=== PATIENT | female | born 2000 | race Caucasian/White ===

== ENCOUNTER 2018-12-12 15:19 | Inpatient (IN) ==
[2018-12-12 17:56] LABS: Basophils # (auto) 0.02 K/uL (0-0.2); Basophils % (auto) 0.3 %; Eosinophils # (auto) 0.05 K/uL (0-0.5); Eosinophils % (auto) 0.8 %; Hematocrit (blood only) 40.4 % (37-47); Hemoglobin 14.2 g/dL (12.0-16.0); Immature Granulocytes # (auto) 0.01 K/uL (0.00-0.02); Immature Granulocytes % (auto) 0.2 %; Lymphocytes # (auto) 1.81 K/uL (1.2-3.4); Lymphocytes % (auto) 27.6 %; Mean Corpuscular Hemoglobin 31.2 pg (25-34); Mean Corpuscular Hgb Conc 35.1 g/dL (32-36); Mean Corpuscular Volume 88.8 fL (80-100); Mean Platelet Volume 9.5 fL (7.4-10.4); Monocytes # (auto) 0.34 K/uL (0.11-0.59); Monocytes % (auto) 5.2 %; Neutrophils # (auto) 4.33 K/uL (1.4-6.5); Neutrophils % (auto) 65.9 %; Platelet Count 213 K/uL (130-400); RDW Coefficient of Variation 12.6 % (11.5-14.5); RDW Standard Deviation 40.6 fL (36.4-46.3); Red Blood Count 4.55 M/uL (4.2-5.4); White Blood Count 6.56 K/uL (4.8-10.8)
[2018-12-12 18:09] LABS: Prothrombin Time 10.5 Seconds (9.0-12.0)
[2018-12-12 18:14] LABS: Alanine Aminotransferase 21 U/L (12-78); Albumin Level 4.2 gm/dl (3.4-5.0); Aspartate Aminotransferase 16 U/L (15-37); Blood Urea Nitrogen 9 mg/dl (7-18); Calcium 9.8 mg/dl (8.5-10.1); Carbon Dioxide 23 mmol/L (21-32); Chloride 103 mmol/L (98-107); Creatinine Clr Calc Pharmacy 110.6 ml/min; Est GFR (African American) 137.4; Est GFR (Non-African American) 118.6; Glucose 79 mg/dl (70-99); Potassium 3.4 mmol/L (3.5-5.1); Sodium 136 mmol/L (136-145)
[2018-12-12 18:24] LABS: Alkaline Phosphatase 59 U/L (45-117); Bilirubin,Total 0.4 mg/dl (0.2-1); Globulin 4.2 gm/dl (2.5-4.0); Total Protein 8.4 gm/dl (6.4-8.2); Troponin I < 0.015 ng/ml (0-0.045)
--- NOTE | 2018-12-12 18:47 | CT Scan Report ---
CT SCAN OF THE BRAIN WITHOUT IV CONTRAST CLINICAL HISTORY: Slurred speech. COMPARISON STUDY: No priors. TECHNIQUE: Unenhanced axial CT scan of the brain is performed from the vertex to the skull base. A d ose lowering technique was utilized adhering to the principles of ALARA. CT DOSE: 537.48 mGy.cm FINDINGS: Brain parenchyma: The brain parenchyma is normal in appearance. There is no hemorrhage, mass effect, or evidence of acute territorial ischemia by CT criteria. Wilkins-white matter differentiation is preser chicho. No extra-axial fluid collection is seen. Ventricles, sulci, cisterns: Normal in configuration. Intracranial vasculature: The visualized intracranial vasculature at the skull base is normal in appe arance. Calvarium: Unremarkable. Sinuses and mastoids: The visualized paranasal sinuses are clear. The mastoid air cells are well pneu matized. Orbits: The bony orbits are grossly intact. IMPRESSION: No acute intracranial abnormality. Electronically signed by: Rajesh Diamond M.D. 12/12/2018 6:46 PM
[2018-12-12 18:50] LABS: Appearance Urine Clear (Clear); Bilirubin Urine Negative (Negative); Blood Urine Negative (Negative); Color Urine Yellow; Glucose Urine UA Negative (Negative); Ketones Urine Negative (Negative); Leukocyte Esterase Urine Negative (Negative); Nitrite Urine Negative (Negative); Protein Urine Negative (Negative); Specific Gravity Urine 1.009 (1.000-1.030); Urobilinogen Urine Negative (Negative); pH Urine 6.5 (4.5-7.5)
--- NOTE | 2018-12-12 18:59 | XRay Report ---
SINGLE VIEW CHEST CLINICAL HISTORY: Generalized weakness. FINDINGS: An AP, portable, upright chest radiograph is obtained. No prior studies are available for c omparison at the time of dictation. The examination is degraded by portable technique and patient ro tation. The cardiomediastinal silhouette is unremarkable. The lungs and pleural spaces are clear. No pneumothorax is seen. The bony thorax is grossly intact. IMPRESSION: No active disease in the chest. Electronically signed by: Rajesh Diamond M.D. 12/12/2018 6:57 PM
[2018-12-12 19:31] LABS: Amphetamines+Metham, Urine Neg (Neg); Barbiturates, Urine Neg (Neg); Benzodiazepine, Urine Neg (Neg); Cocaine, Urine Neg (Neg); MDMA (Ecstacy), Urine Neg (Neg); Methadone, Urine Neg (Neg); Opiate, Urine Neg (Neg); Phencyclidine, Urine Neg (Neg)
--- NOTE | 2018-12-12 20:48 | Magnetic Resonance Report ---
MRI OF THE BRAIN WITHOUT IV CONTRAST CLINICAL HISTORY: Slurred speech. COMPARISON STUDY: CT of the brain dated 12/12/2018. TECHNIQUE: MRI of the brain was performed utilizing various T1 and T2-weighted sequences in the axial , sagittal, and coronal planes. IV contrast was not administered for this examination. FINDINGS: Brain parenchyma: There is a 2 cm focus of geographic signal abnormality within the right superior ce rebellar peduncle, best seen on coronal FLAIR image #18. There is no restricted diffusion within this lesion, which causes minimal mass effect. There is no hemorrhage. There is no restricted diffusion t ypical for acute ischemia. No extra-axial fluid collection is seen. The cerebellar tonsils are desiree l in configuration. Ventricles, sulci, and cisterns: Normal in configuration. Pituitary and sella: Unremarkable. Intracranial vasculature: Normal flow voids are maintained at the skull base. Orbits: The bony orbits are grossly intact. Orbital contents are normal in appearance. Sinuses and mastoids: Trace mucosal thickening is noted in the right maxillary antrum. The remaining paranasal sinuses are clear. The mastoid air cells are well pneumatized. Calvarium: Unremarkable. Cervical cord: Partially visualized cervical spinal cord is normal in morphology and signal intensity . IMPRESSION: 1. There is a 2 cm region of signal abnormality identified within the right superior cerebellar pedun rosa which causes mild mass effect. The imaging findings are nonspecific, and this could represent dem yelination/multiple sclerosis, glioma, a nonspecific encephalitis, or less likely a subacute infarct. Follow-up with neurology is recommended, as is a repeat contrast-enhanced MRI in several weeks' time . 2. The brain parenchyma is otherwise normal in appearance. There is no hemorrhage or restricted diffu thalia identified typical for acute ischemia. Findings were discussed with Dr. Cook in the emergency department at the time of interpretation. Electronically signed by: Rajesh Diamond M.D. 12/12/2018 8:47 PM
[2018-12-12] MEDS ORDERED: ASPIRIN CHEW 324 MG PO STA (20:55)
--- NOTE | 2018-12-12 21:13 | Emergency Department Note ---
Entered by Michelle Awad acting as a scribe for History of Present Illness General Chief complaint: Neuro Symptoms/Deficit Stated complaint: R HAND WEAKNESS, SLURRED SPEACH Time Seen by Provider: 12/12/18 16:41 Source: patient History of Present Illness Onset (ago): week(s) 1 Location: head Pain Consistency: + other (persistent ) Quality: + other (neurological symptoms) Associated symptoms: + other (positive slurring speech; positive mumbling; positive difficulty writing; positive slow and deliberate with her right hand; negative abdominal pain); no chest pain, no fever/chills and no headaches The patient is a 18 year old white female w/ no significant PMHx who presents to the ED w/ CC of persistent neurological symptoms beginning about one week prior to arrival. The patient states that she has been slurring her speech and mumbling during this time. She reports that she has been having difficulty writing, stating that she knows what she wants to say but is having difficulty holding her pencil and "physically doing it". The patient states that her writing has been slow and deliberate when using her right hand, but states that it is not normally like this. She denies headache, chest pain, fever, chills, and abdominal pain. The patient denies any recent falls or head trauma. She states that she is on Sprintec control. The patient denies any history of seizures or migraines. She reports that two whitley ago it was thought that she had Lyme disease and she was treated with Doxycycline, but she states that she was diagnosed with a virus. Home Medications Home Medications Medication Instructions Recorded Confirmed Type norgestimate-ethinyl estradiol 1 tab PO DAILY 12/12/18 12/12/18 History [Sprintec (28)] Allergies Allergy/AdvReac Type Severity Reaction Status Date / Time Penicillins Allergy Unknown Verified 12/12/18 17:47 Past Med/Surg History Medical History No significant past medical history Surgical History S/P wisdom tooth extraction Family History Mother Melanoma Father Dyslipidemia Nephrolithiasis Social History Preferred Language: Tunisian Communication Ability: Effective [employer]ancer Required: No Beliefs That Will Affect Care: None Current Living Situation: Other Current Living Situation Comment: roommates current occupational status: student Feels Safe at Home: Yes Safety Concerns: Feels Safe At This Time Smoking Status: Never smoker Hx Alcohol Use: Yes Alcohol type: beer, wine and hard liquor Alcohol Intake Frequency Comment: About 10 drinks per week Hx Substance Use: No Review of Systems See HPI for pertinent positives & negatives. and A total of 10 systems reviewed and were otherwise negative Physical Exam Vital Signs Vital Signs - 24 hr 12/12/18 15:32 12/12/18 17:06 12/12/18 18:25 Temperature 37.5 C Temperature Source Oral Sepsis Recent Fever Within 48 Hours No Sepsis New/Unexplained Change in Mental Status No Sepsis Action Taken by Nursing No Action Required Pulse Rate 101 H Pulse Rate [Left] 87 Pulse Rate from SpO2 Sensor Pulse Rhythm [Left] Pulse Strength [Left] Respiratory Rate 20 20 Respiratory Effort / Characteristics Respiratory Depth Respiratory Pattern Blood Pressure 150/94 H Blood Pressure [Right Arm] 131/82 Blood Pressure Mean 112 Blood Pressure Mean [Right Arm] 98 Blood Pressure Position [Right Arm] Pulse Oximetry 100 98 Oxygen Delivery Method Room Air Room Air Room Air 12/12/18 18:38 12/12/18 19:00 12/12/18 19:27 Temperature Temperature Source Sepsis Recent Fever Within 48 Hours Sepsis New/Unexplained Change in Mental Status Sepsis Action Taken by Nursing Pulse Rate 108 H 87 88 Pulse Rate [Left] Pulse Rate from SpO2 Sensor Pulse Rhythm [Left] Pulse Strength [Left] Respiratory Rate 20 21 20 Respiratory Effort / Characteristics Respiratory Depth Respiratory Pattern Blood Pressure 127/74 Blood Pressure [Right Arm] Blood Pressure Mean 91 Blood Pressure Mean [Right Arm] Blood Pressure Position [Right Arm] Pulse Oximetry 100 96 100 Oxygen Delivery Method Room Air Room Air Room Air 12/12/18 19:30 12/12/18 20:12 12/12/18 20:30 Temperature Temperature Source Sepsis Recent Fever Within 48 Hours Sepsis New/Unexplained Change in Mental Status Sepsis Action Taken by Nursing Pulse Rate 106 H 83 94 H Pulse Rate [Left] Pulse Rate from SpO2 Sensor Pulse Rhythm [Left] Pulse Strength [Left] Respiratory Rate 24 24 16 Respiratory Effort / Characteristics Respiratory Depth Respiratory Pattern Blood Pressure 131/82 129/79 125/79 Blood Pressure [Right Arm] Blood Pressure Mean 98 95 94 Blood Pressure Mean [Right Arm] Blood Pressure Position [Right Arm] Pulse Oximetry 100 99 99 Oxygen Delivery Method Room Air Room Air Room Air 12/12/18 21:00 12/12/18 21:30 12/12/18 21:31 Temperature Temperature Source Sepsis Recent Fever Within 48 Hours Sepsis New/Unexplained Change in Mental Status Sepsis Action Taken by Nursing Pulse Rate 90 107 H 109 H Pulse Rate [Left] Pulse Rate from SpO2 Sensor 111 H Pulse Rhythm [Left] Pulse Strength [Left] Respiratory Rate 22 21 20 Respiratory Effort / Characteristics Respiratory Depth Respiratory Pattern Blood Pressure 116/73 138/95 Blood Pressure [Right Arm] Blood Pressure Mean 87 109 Blood Pressure Mean [Right Arm] Blood Pressure Position [Right Arm] Pulse Oximetry 98 99 99 Oxygen Delivery Method Room Air Room Air 12/12/18 22:00 12/12/18 22:01 12/12/18 22:30 Temperature Temperature Source Sepsis Recent Fever Within 48 Hours Sepsis New/Unexplained Change in Mental Status Sepsis Action Taken by Nursing Pulse Rate 101 H 101 H 93 H Pulse Rate [Left] Pulse Rate from SpO2 Sensor 102 H 102 H Pulse Rhythm [Left] Pulse Strength [Left] Respiratory Rate 16 20 21 Respiratory Effort / Characteristics Respiratory Depth Respiratory Pattern Blood Pressure 112/80 126/83 Blood Pressure [Right Arm] Blood Pressure Mean 90 97 Blood Pressure Mean [Right Arm] Blood Pressure Position [Right Arm] Pulse Oximetry 98 98 97 Oxygen Delivery Method Room Air 12/12/18 23:23 12/12/18 23:36 12/13/18 04:00 Temperature 36.8 C 36.8 C Temperature Source Oral Oral Sepsis Recent Fever Within 48 Hours Sepsis New/Unexplained Change in Mental Status Sepsis Action Taken by Nursing Pulse Rate 95 H Pulse Rate [Left] 85 84 Pulse Rate from SpO2 Sensor Pulse Rhythm [Left] Regular Pulse Strength [Left] Normal Respiratory Rate 16 20 Respiratory Effort / Characteristics Non-Labored Spontaneous Respiratory Depth Normal Normal Respiratory Pattern Regular Blood Pressure Blood Pressure [Right Arm] 122/88 106/66 Blood Pressure Mean Blood Pressure Mean [Right Arm] 99 79 Blood Pressure Position [Right Arm] Lying Lying Pulse Oximetry 98 99 Oxygen Delivery Method Room Air Room Air 12/13/18 08:05 12/13/18 10:45 12/13/18 11:10 Temperature 36.9 C 37.2 C Temperature Source Oral Oral Sepsis Recent Fever Within 48 Hours Sepsis New/Unexplained Change in Mental Status Sepsis Action Taken by Nursing Pulse Rate 65 Pulse Rate [Left] 85 76 Pulse Rate from SpO2 Sensor Pulse Rhythm [Left] Pulse Strength [Left] Respiratory Rate 16 18 Respiratory Effort / Characteristics Respiratory Depth Respiratory Pattern Blood Pressure Blood Pressure [Right Arm] 118/80 115/76 Blood Pressure Mean Blood Pressure Mean [Right Arm] 92 89 Blood Pressure Position [Right Arm] Lying Lying Pulse Oximetry 99 98 Oxygen Delivery Method Room Air Room Air GENERAL: Well appearing, well nourished, NAD, non-toxic. EYE EXAM: Leftward horizontal nystagmus. Non-bidirectional, gyrational, or vertical. Normal conjunctiva. PERRL, no anisocoria and EOM's grossly intact w/o pain. OROPHARYNX: Moist mucus membranes. Grossly normal dentition. NECK: Supple, no nuchal rigidity, no adenopathy, non-tender. no signs of meningismus. LUNGS: Clear to auscultation. Normal chest wall mechanics. HEART: NSR, no MRG. ABDOMEN: Abdomen soft, non-tender, normo-active bowel sounds, no masses, no rebound or guarding. BACK: No CVA TTP. SKIN: No rashes and no bruising. UPPER EXTREMITIES: Upper extremities are grossly normal. LOWER EXTREMITIES: No pitting edema. No calf pain. NEURO EXAM: A&O x3, cranial nerves II-XII grossly intact with the exception of slurred speech. 5/5 strength throughout, no sensory deficits, good finger to nose, no pronator drift, moves all 4 extremities on command w/o issue. Course 1657: Past medical records reviewed. The patient was evaluated in room C4. A complete history and physical exam was performed. 1920: [facility] recommends [facility]. 1934: I checked on and updated the patient on the treatment plan. Consultations Consultation #1: I discussed the [facility] who recommends MRI. [facility] who agreed to further evaluate treat the patient. Time: 19:21 Administered Medications Miscellaneous (Patient's Own Oral Contraceptive) 1 ea PO DAILY URSZULA Stop: 01/12/19 08:59 Last Admin: 12/13/18 09:55 Dose: 1 ea Documented by: [id number] Discontinued Medications Aspirin (Aspirin) 324 mg PO NOW STA Stop: 12/12/18 20:56 Last Admin: 12/12/18 21:19 Dose: 324 mg Documented by: [id number] Potassium Chloride (Klor-Con M20) 20 meq PO Q2H URSZULA Stop: 12/13/18 10:31 Last Admin: 12/13/18 11:51 Dose: 20 meq Documented by: [id number] Admin: 12/13/18 09:55 Dose: 20 meq Documented by: [id number] Medical Decision Making Medical Records Attestation: I reviewed the patient's medical records. Home Medications Current Medication List: was personally reviewed by me Laboratory Data Attestation: I reviewed the patient's lab results. Result diagrams: 12/12/18 17:37 12/12/18 17:37 Lab Results 12/12/18 12/12/18 12/12/18 Range/Units 16:45 16:45 17:37 WBC (4.8-10.8) K/uL RBC (4.2-5.4) M/uL Hgb (12.0-16.0) g/dL Hct (37-47) % MCV (80-100) fL MCH (25-34) pg MCHC (32-36) g/dL RDW Std Deviation (36.4-46.3) fL RDW Coeff of Johny (11.5-14.5) % Plt Count (130-400) K/uL MPV (7.4-10.4) fL Immature Gran % (Auto) % Neut % (Auto) % Lymph % (Auto) % [place] % (Auto) % Eos % (Auto) % Baso % (Auto) % Immature Gran # (Auto) (0.00-0.02) K/uL Neut # (Auto) (1.4-6.5) K/uL Lymph # (Auto) (1.2-3.4) K/uL [place] # (Auto) (0.11-0.59) K/uL Eos # (Auto) (0-0.5) K/uL Baso # (Auto) (0-0.2) K/uL PT 10.5 (9.0-12.0) Seconds INR 1.0 (0.9-1.1) Sodium (136-145) mmol/L Potassium (3.5-5.1) mmol/L Chloride (98-107) mmol/L Carbon Dioxide (21-32) mmol/L Anion Gap (3-11) BUN (7-18) mg/dl Creatinine (0.6-1.2) mg/dl Est Cr Clr Drug Dosing ml/min Est GFR ( Amer) Est GFR (Non-Af Amer) BUN/Creatinine Ratio (10-20) Glucose (70-99) mg/dl Calcium (8.5-10.1) mg/dl Magnesium (1.8-2.4) mg/dl Total Bilirubin (0.2-1) mg/dl AST (15-37) U/L ALT (12-78) U/L Alkaline Phosphatase (45-117) U/L Troponin I (0-0.045) ng/ml Total Protein (6.4-8.2) gm/dl Albumin (3.4-5.0) gm/dl Globulin (2.5-4.0) gm/dl Albumin/Globulin Ratio (0.9-2) TSH (0.300-4.500) uIu/ml Urine Color Yellow Urine Appearance Clear (Clear) Urine pH 6.5 (4.5-7.5) Ur Specific [place] 1.009 (1.000-1.030) Urine Protein Negative (Negative) Urine Glucose (UA) Negative (Negative) Urine Ketones Negative (Negative) Urine Blood Negative (Negative) Urine Nitrite Negative (Negative) Urine Bilirubin Negative (Negative) Urine Urobilinogen Negative (Negative) Ur Leukocyte Esterase Negative (Negative) Urine Opiates Screen Neg (Neg) Ur Methadone, Qual Neg (Neg) Urine Barbiturates Neg (Neg) Ur Phencyclidine (PCP) Neg (Neg) U Amphetamin/Meth Scrn Neg (Neg) MDMA (Ecstasy) Screen Neg (Neg) U Benzodiazepines Scrn Neg (Neg) Ur Cocaine Metabolite Neg (Neg) U Marijuana (THC) Screen Neg (Neg) Ethyl Alcohol mg/dL (0-3) mg/dl 12/12/18 12/12/18 12/12/18 Range/Units 17:37 17:37 17:37 WBC 6.56 (4.8-10.8) K/uL RBC 4.55 (4.2-5.4) M/uL Hgb 14.2 (12.0-16.0) g/dL Hct 40.4 (37-47) % MCV 88.8 (80-100) fL MCH 31.2 (25-34) pg MCHC 35.1 (32-36) g/dL RDW Std Deviation 40.6 (36.4-46.3) fL RDW Coeff of Johny 12.6 (11.5-14.5) % Plt Count 213 (130-400) K/uL MPV 9.5 (7.4-10.4) fL Immature Gran % (Auto) 0.2 % Neut % (Auto) 65.9 % Lymph % (Auto) 27.6 % [place] % (Auto) 5.2 % Eos % (Auto) 0.8 % Baso % (Auto) 0.3 % Immature Gran # (Auto) 0.01 (0.00-0.02) K/uL Neut # (Auto) 4.33 (1.4-6.5) K/uL Lymph # (Auto) 1.81 (1.2-3.4) K/uL [place] # (Auto) 0.34 (0.11-0.59) K/uL Eos # (Auto) 0.05 (0-0.5) K/uL Baso # (Auto) 0.02 (0-0.2) K/uL PT (9.0-12.0) Seconds INR (0.9-1.1) Sodium 136 (136-145) mmol/L Potassium 3.4 L (3.5-5.1) mmol/L Chloride 103 (98-107) mmol/L Carbon Dioxide 23 (21-32) mmol/L Anion Gap 9.0 (3-11) BUN 9 (7-18) mg/dl Creatinine 0.73 (0.6-1.2) mg/dl Est Cr Clr Drug Dosing 110.6 ml/min Est GFR ( Amer) 137.4 Est GFR (Non-Af Amer) 118.6 BUN/Creatinine Ratio 12.0 (10-20) Glucose 79 (70-99) mg/dl Calcium 9.8 (8.5-10.1) mg/dl Magnesium 2.0 (1.8-2.4) mg/dl Total Bilirubin 0.4 (0.2-1) mg/dl AST 16 (15-37) U/L ALT 21 (12-78) U/L Alkaline Phosphatase 59 (45-117) U/L Troponin I < 0.015 (0-0.045) ng/ml Total Protein 8.4 H (6.4-8.2) gm/dl Albumin 4.2 (3.4-5.0) gm/dl Globulin 4.2 H (2.5-4.0) gm/dl Albumin/Globulin Ratio 1.0 (0.9-2) TSH 1.210 (0.300-4.500) uIu/ml Urine Color Urine Appearance (Clear) Urine pH (4.5-7.5) Ur Specific [place] (1.000-1.030) Urine Protein (Negative) Urine Glucose (UA) (Negative) Urine Ketones (Negative) Urine Blood (Negative) Urine Nitrite (Negative) Urine Bilirubin (Negative) Urine Urobilinogen (Negative) Ur Leukocyte Esterase (Negative) Urine Opiates Screen (Neg) Ur Methadone, Qual (Neg) Urine Barbiturates (Neg) Ur Phencyclidine (PCP) (Neg) U Amphetamin/Meth Scrn (Neg) MDMA (Ecstasy) Screen (Neg) U Benzodiazepines Scrn (Neg) Ur Cocaine Metabolite (Neg) U Marijuana (THC) Screen (Neg) Ethyl Alcohol mg/dL < 3.0 (0-3) mg/dl Imaging Data Radiologist's Impression: Radiology results as stated below per my review and the radiologist's interpretation: SINGLE VIEW CHEST CLINICAL HISTORY: Generalized weakness. FINDINGS: An AP, portable, upright chest radiograph is obtained. No prior studies are available for comparison at the time of dictation. The examination is degraded by portable technique and patient rotation. The cardiomediastinal silhouette is unremarkable. The lungs and pleural spaces are clear. No pneumothorax is seen. The bony thorax is grossly intact. IMPRESSION: No active disease in the chest. Electronically signed by: Rajesh Diamond M.D. 12/12/2018 6:[address] SCAN OF THE BRAIN WITHOUT IV CONTRAST CLINICAL HISTORY: Slurred speech. COMPARISON STUDY: No priors. TECHNIQUE: Unenhanced axial CT scan of the brain is performed from the vertex to the skull base. A dose lowering technique was utilized adhering to the principles of ALARA. CT DOSE: 537.48 mGy.cm FINDINGS: Brain parenchyma: The brain parenchyma is normal in appearance. There is no hemorrhage, mass effect, or evidence of acute territorial ischemia by CT criteria. Wilkins-white matter differentiation is preserved. No extra-axial fluid collection is seen. Ventricles, sulci, cisterns: Normal in configuration. Intracranial vasculature: The visualized intracranial vasculature at the skull base is normal in appearance. Calvarium: Unremarkable. Sinuses and mastoids: The visualized paranasal sinuses are clear. The mastoid air cells are well pneumatized. Orbits: The bony orbits are grossly intact. IMPRESSION: No acute intracranial abnormality. Electronically signed by: Rajesh Diamond M.D. 12/12/2018 6:46 PM MRI OF THE BRAIN WITHOUT IV CONTRAST CLINICAL HISTORY: Slurred speech. COMPARISON STUDY: CT of the brain dated 12/12/2018. TECHNIQUE: MRI of the brain was performed utilizing various T1 and T2-weighted sequences in the axial, sagittal, and coronal planes. IV contrast was not administered for this examination. FINDINGS: Brain parenchyma: There is a 2 cm focus of geographic signal abnormality within the right superior cerebellar peduncle, best seen on coronal FLAIR image #18. There is no restricted diffusion within this lesion, which causes minimal mass effect. There is no hemorrhage. There is no restricted diffusion typical for acute ischemia. No extra-axial fluid collection is seen. The cerebellar tonsils are normal in configuration. Ventricles, sulci, and cisterns: Normal in configuration. Pituitary and sella: Unremarkable. Intracranial vasculature: Normal flow voids are maintained at the skull base. Orbits: The bony orbits are grossly intact. Orbital contents are normal in appea nina. Sinuses and mastoids: Trace mucosal thickening is noted in the right maxillary antrum. The remaining paranasal sinuses are clear. The mastoid air cells are well pneumatized. Calvarium: Unremarkable. Cervical cord: Partially visualized cervical spinal cord is normal in morphology and signal intensity. IMPRESSION: 1. There is a 2 cm region of signal abnormality identified within the right superior cerebellar peduncle which causes mild mass effect. The imaging findings are nonspecific, and this could represent demyelination/multiple sclerosis, glioma, a nonspecific encephalitis, or less likely a subacute infarct. Follow-up with neurology is recommended, as is a repeat contrast-enhanced MRI in several weeks' time. 2. The brain parenchyma is otherwise normal in appearance. There is no hemorrhage or restricted diffusion identified typical for acute ischemia. Findings were discussed with Dr. Cook in the emergency department at the time of interpretation. Electronically signed by: Rajesh Diamond M.D. 12/12/2018 8:47 PM Dictated: 12/12/182022 ECG Data Attestation: I personally reviewed and interpreted this ECG as follows: Indication: weakness Rate (beats per minute): 89 Rhythm: normal sinus Findings: + other (normal intervals; normal axis); no ST depression, no ST elevation and no acute ischemic change MDM Narrative The patient is a 18 year old white female w/ no significant PMHx who presents to the ED w/ CC of persistent neurological symptoms beginning about one week prior to arrival. Differential diagnoses includes but is not limited to toxic, metabolic, infectious, traumatic, cardiac, neurologic, hematologic, psychiatric and inflammatory etiologies. Patient was seen and evaluated the bedside. The patient has been complaining some neurologic symptoms beginning approximately a week prior. The patient states she has had some increasing stress and did note one fall approximately 9 to 10 days ago. The patient did not have any LOC at that time. Patient does not take blood thinning medications. The patient does take control. The patient does have some slurred speech and some difficulty with writing where she is very deliberate and slow but can write. The patient does answer basic arithmetic and otherwise has no focal findings on exam. The patient did a blood work completed along with a CT of the head. These were all negative. The patient given her persistent findings and symptoms I did speak the on-call neurologist who recommended MRI brain. There was concern on T2 flair imaging of the cerebellum. I did order the patient's a full dose aspirin as a precaution even though stroke was less likely based on the imaging per radiology. I did speak the on-call hospitalist agreed to further evaluate treat the patient. Patient was admitted to the medicine service. Impression & Plan Abnormal brain MRI, Dysarthria, Difficulty writing Discharge Plan Visit Data *Final* Discharge Date/Time: 12/12/18 22:59 Chief Complaint: Neuro Symptoms/Deficit Stated Complaint: R HAND WEAKNESS, SLURRED SPEACH ED Provider: Chalino Cook Discharge Problem: Abnormal brain MRI, Dysarthria, Difficulty writing Patient Disposition: Admitted As Inpatient Discharge Instructions Interventions: ED Discharge Assessment Last Done: 12/12/18 22:59 The scribe's documentation has been prepared under my direction and personally reviewed by me in its entirety. I confirm that the note above accurately reflects all work, treatment, procedures, and medical decision making performed by me.
--- NOTE | 2018-12-12 22:41 | History & Physical Report ---
Date of Service December 12, 2018 Assessment & Plan (1) Neurological symptoms: This is a 18-year-old female with no PMH who presents with her mother and boyfriend after 1 week of difficulty finding words, and also difficulty with handwriting. She states she first noticed symptoms with her handwriting, notes she had to "think very hard about what to write". She is a jef in nursing school. Of note she denies any recent head trauma, although has history of 2 concussions during high school lacrosse. She states she bumped her head on a [employer] countertop last Wednesday. Her symptoms began Wednesday. Denies accompanying headache or h/o migraines, no increased stress/life events. Denies seizure like activity. Mother states maternal grandfather had a CVA in his 60s, patient's cousin has epilepsy. Family is otherwise healthy and patient is healthy herself. Denies any medical complications during or childhood. Patient only takes oral contraceptive medication and no other medicines. No recent hospitalizations. In the ED, labs were relatively unremarkable. Head CT was negative for any acute abnormalities. Brain MRI without contrast showed a 2 cm focus of signal abnormality within the right superior cerebellar peduncle. Negative for hemorrhage or ischemia. Anatomy is otherwise unremarkable. Patient is afebrile, mildly tachycardic. TSH is normal. Urinalysis unremarkable. Urine tox negative, no alcohol. Chest x-ray unremarkable. Neurology was consulted, patient was administered 324 mg p.o. aspirin. Neurological symptoms -4 days, ongoing, persistent -- Aphasia versus dysarthria, dysgraphia? -Brain MRI without contrast with 2 cm focus of signal abnormality in the right superior cerebellar peduncle -differential inc TIA/ demyelination /inflammatory. Infarction/encephalitis seem unlikely given clinical picture. Toxic causes unlikely. -pt is hemodynamically stable, and neuro exam is relatively benign, speaking in full sentences. Plan: -admit med/tele -Consult neurology, defer further imaging to their management. FEN/GI: regular diet DVT ppx: low risk, SCDs CODE STATUS: FULL DISPO: med/tele other ongoing medical problems: -on OCP - continued. History of Present Illness Chief Complaint: Neurological complaints, abnormal brain MRI Primary Care Provider: [facility] This is a 18-year-old female who presents with her mother and boyfriend after 1 week of difficulty finding words, and also difficulty with handwriting. She states she first noticed symptoms with her handwriting, notes she had tooth "think very hard about what to write". She is a jef in nursing school. Of note she denies any recent head trauma, although has had 2 concussions during high school lacrosse. She states she bumped her head on a [employer] countertop last Wednesday. Her symptoms began Wednesday. Mother states maternal grandfather had a CVA in his 60s, patient's cousin has epilepsy. Family is otherwise healthy and patient is healthy herself. Denies any medical complications during or childhood. Patient only takes oral contraceptive medication and no other medicines. No recent hospitalizations. In the ED, labs were relatively unremarkable. Head CT was negative for any acute abnormalities. Brain MRI without contrast showed a 2 cm focus of signal abnormality within the right superior cerebellar peduncle. Negative for hemorrhage or ischemia. Anatomy is otherwise unremarkable. Patient is afebrile, mildly tachycardic. TSH is normal. Urinalysis unremarkable. Urine tox negative, no alcohol. Chest x-ray unremarkable. Neurology was consulted, patient was administered 324 mg p.o. aspirin. Allergies Allergy/AdvReac Type Severity Reaction Status Date / Time Penicillins Allergy Unknown Verified 12/12/18 17:47 Home Medications Home Medications Medication Instructions Recorded Confirmed Type norgestimate-ethinyl estradiol 1 tab PO DAILY 12/12/18 12/12/18 History [Sprcyndiec (28)] Past Med/Surg History Medical History No significant past medical history Social History Preferred Language: Barbadian Communication Ability: Effective Tester [employer] Required: No Beliefs That Will Affect Care: None Current Living Situation: Other Current Living Situation Comment: roommates Feels Safe at Home: Yes Safety Concerns: Feels Safe At This Time Smoking Status: Never smoker Hx Alcohol Use: Yes Alcohol type: beer, wine and hard liquor Hx Substance Use: No Review of Systems Review of Systems: All systems reviewed & are unremarkable except as noted in HPI & below Physical Exam Physical Exam: Vitals noted and within normal limits with the exception of mi ld tachycardia. GENERAL: Awake, alert to person, place, and time, nontoxic-appearing, in no distress. HENT: Normocephalic, atraumatic. Mucus membranes appear moist. EYES: Normal conjunctiva. Sclera non-icteric. EOMI. NECK: Supple. Full range of motion. No JVD. RESPIRATORY: Clear to auscultation. Normal work of breathing. CARDIAC: Regular rate, normal rhythm. Extremities warm and well perfused, 2+ radial pulses bilaterally; 2+ posterior tibialis pulses bilaterally. ABDOMEN: Soft, non-distended. No tenderness to palpation in all four quadrants. No rebound or guarding. No masses. Bowel sounds are normal. LOWER EXTREMITIES: Inspection of calves reveal equal size bilaterally. They are non-tender. No edema. No discoloration. NEURO: No focal motor deficits noted. Sensation in tact. CN II-XII in tact. Normal cerebellar testing. Normal gait, no facial droop. SKIN: Rash not present. No jaundice noted. Significant lesions not present. PSYCH: Appropriate mood and affect. Cooperative. Mother and patient's boyfriend are at bedside. Exam as done by Tracey Brewer MD, Assembly Technician. Results & Data Vital Signs (Past 12 Hours) Vital Signs Temp Pulse Pulse Resp BP BP Pulse Ox 12/12/18 20:12 83 24 129/79 99 12/12/18 19:30 106 H 24 131/82 100 12/12/18 19:27 88 20 127/74 100 12/12/18 19:00 87 21 96 12/12/18 18:38 108 H 20 100 12/12/18 18:25 87 20 131/82 98 12/12/18 15:32 37.5 C 101 H 20 150/94 H 100 Laboratory Results 12/12/18 12/12/18 12/12/18 Range/Units 17:37 17:37 17:37 WBC 6.56 (4.8-10.8) K/uL RBC 4.55 (4.2-5.4) M/uL Hgb 14.2 (12.0-16.0) g/dL Hct 40.4 (37-47) % MCV 88.8 (80-100) fL MCH 31.2 (25-34) pg MCHC 35.1 (32-36) g/dL RDW Std Deviation 40.6 (36.4-46.3) fL RDW Coeff of Johny 12.6 (11.5-14.5) % Plt Count 213 (130-400) K/uL MPV 9.5 (7.4-10.4) fL Immature Gran % (Auto) 0.2 % Neut % (Auto) 65.9 % Lymph % (Auto) 27.6 % [place] % (Auto) 5.2 % Eos % (Auto) 0.8 % Baso % (Auto) 0.3 % Immature Gran # (Auto) 0.01 (0.00-0.02) K/uL Neut # (Auto) 4.33 (1.4-6.5) K/uL Lymph # (Auto) 1.81 (1.2-3.4) K/uL [place] # (Auto) 0.34 (0.11-0.59) K/uL Eos # (Auto) 0.05 (0-0.5) K/uL Baso # (Auto) 0.02 (0-0.2) K/uL PT (9.0-12.0) Seconds INR (0.9-1.1) Sodium 136 (136-145) mmol/L Potassium 3.4 L (3.5-5.1) mmol/L Chloride 103 (98-107) mmol/L Carbon Dioxide 23 (21-32) mmol/L Anion Gap 9.0 (3-11) BUN 9 (7-18) mg/dl Creatinine 0.73 (0.6-1.2) mg/dl Est Cr Clr Drug Dosing 110.6 ml/min Est GFR ( Amer) 137.4 Est GFR (Non-Af Amer) 118.6 BUN/Creatinine Ratio 12.0 (10-20) Glucose 79 (70-99) mg/dl Calcium 9.8 (8.5-10.1) mg/dl Magnesium 2.0 (1.8-2.4) mg/dl Total Bilirubin 0.4 (0.2-1) mg/dl AST 16 (15-37) U/L ALT 21 (12-78) U/L Alkaline Phosphatase 59 (45-117) U/L Troponin I < 0.015 (0-0.045) ng/ml Total Protein 8.4 H (6.4-8.2) gm/dl Albumin 4.2 (3.4-5.0) gm/dl Globulin 4.2 H (2.5-4.0) gm/dl Albumin/Globulin Ratio 1.0 (0.9-2) TSH 1.210 (0.300-4.500) uIu/ml Urine Color Urine Appearance (Clear) Urine pH (4.5-7.5) Ur Specific [place] (1.000-1.030) Urine Protein (Negative) Urine Glucose (UA) (Negative) Urine Ketones (Negative) Urine Blood (Negative) Urine Nitrite (Negative) Urine Bilirubin (Negative) Urine Urobilinogen (Negative) Ur Leukocyte Esterase (Negative) Urine Opiates Screen (Neg) Ur Methadone, Qual (Neg) Urine Barbiturates (Neg) Ur Phencyclidine (PCP) (Neg) U Amphetamin/Meth Scrn (Neg) MDMA (Ecstasy) Screen (Neg) U Benzodiazepines Scrn (Neg) Ur Cocaine Metabolite (Neg) U Marijuana (THC) Screen (Neg) Ethyl Alcohol mg/dL < 3.0 (0-3) mg/dl 12/12/18 12/12/18 12/12/18 Range/Units 17:37 16:45 16:45 WBC (4.8-10.8) K/uL RBC (4.2-5.4) M/uL Hgb (12.0-16.0) g/dL Hct (37-47) % MCV (80-100) fL MCH (25-34) pg MCHC (32-36) g/dL RDW Std Deviation (36.4-46.3) fL RDW Coeff of Johny (11.5-14.5) % Plt Count (130-400) K/uL MPV (7.4-10.4) fL Immature Gran % (Auto) % Neut % (Auto) % Lymph % (Auto) % [place] % (Auto) % Eos % (Auto) % Baso % (Auto) % Immature Gran # (Auto) (0.00-0.02) K/uL Neut # (Auto) (1.4-6.5) K/uL Lymph # (Auto) (1.2-3.4) K/uL [place] # (Auto) (0.11-0.59) K/uL Eos # (Auto) (0-0.5) K/uL Baso # (Auto) (0-0.2) K/uL PT 10.5 (9.0-12.0) Seconds INR 1.0 (0.9-1.1) Sodium (136-145) mmol/L Potassium (3.5-5.1) mmol/L Chloride (98-107) mmol/L Carbon Dioxide (21-32) mmol/L Anion Gap (3-11) BUN (7-18) mg/dl Creatinine (0.6-1.2) mg/dl Est Cr Clr Drug Dosing ml/min Est GFR ( Amer) Est GFR (Non-Af Amer) BUN/Creatinine Ratio (10-20) Glucose (70-99) mg/dl Calcium (8.5-10.1) mg/dl Magnesium (1.8-2.4) mg/dl Total Bilirubin (0.2-1) mg/dl AST (15-37) U/L ALT (12-78) U/L Alkaline Phosphatase (45-117) U/L Troponin I (0-0.045) ng/ml Total Protein (6.4-8.2) gm/dl Albumin (3.4-5.0) gm/dl Globulin (2.5-4.0) gm/dl Albumin/Globulin Ratio (0.9-2) TSH (0.300-4.500) uIu/ml Urine Color Yellow Urine Appearance Clear (Clear) Urine pH 6.5 (4.5-7.5) Ur Specific [place] 1.009 (1.000-1.030) Urine Protein Negative (Negative) Urine Glucose (UA) Negative (Negative) Urine Ketones Negative (Negative) Urine Blood Negative (Negative) Urine Nitrite Negative (Negative) Urine Bilirubin Negative (Negative) Urine Urobilinogen Negative (Negative) Ur Leukocyte Esterase Negative (Negative) Urine Opiates Screen Neg (Neg) Ur Methadone, Qual Neg (Neg) Urine Barbiturates Neg (Neg) Ur Phencyclidine (PCP) Neg (Neg) U Amphetamin/Meth Scrn Neg (Neg) MDMA (Ecstasy) Screen Neg (Neg) U Benzodiazepines Scrn Neg (Neg) Ur Cocaine Metabolite Neg (Neg) U Marijuana (THC) Screen Neg (Neg) Ethyl Alcohol mg/dL (0-3) mg/dl Code Status & VTE Plan VTE Prophylaxis Plan VTE Prophylaxis will be ordered: Yes Supervising Physician Co-Signing Physician Notes Patient was seen and examined by me personally. I reviewed the chart, the orders and discussed the case in detail with Dr. Tracey Brewer MD. I read this H&P and agree with its contents to entirety. PG Care Time/CCT Total # of Minutes Spent Total Time Spent with Patient: Total time spent is greater than 50% in coordinat ion of care (as documented) at patient's floor/unit and/or counseling patient: Resident Activity Tracking Resident Involvement: Resident Care Provided Care Provided: Adult Hospital Medicine
[2018-12-12] MEDS ORDERED: ACETAMINOPHEN 325 MG TAB PO PRN (23:23)
[2018-12-12] MEDS ORDERED: MAGNESIUM HYDROXIDE SUSP 30 ML UDC PO PRN (23:23)
[2018-12-12] MEDS ORDERED: ONDANSETRON INJ 2 MG/ML 2 ML VIAL IV PRN (23:23)
[2018-12-12] MEDS ORDERED: POLYETHYLENE (MIRALAX) 17 GM PACK PO PRN (23:23)
[2018-12-12] MEDS ORDERED: ALUMINUM/MAGNESIUM SUSP 30 ML UDC PO PRN (23:23)
--- NOTE | 2018-12-13 08:12 | Family Medicine Progress Note ---
Date of Service December 13, 2018 Assessment & Plan (1) Neurological symptoms: This is a 18-year-old female with no PMH who presents with her mother and boyfriend after 1 week of difficulty finding words, and also difficulty with handwriting. She states she first noticed symptoms with her handwriting, notes she had to "think very hard about what to write". She is a jef in nursing school. Of note she denies any recent head trauma, although has history of 2 concussions during high school lacrosse. She states she bumped her head on a [place] countertop last Wednesday. Her symptoms began Wednesday. Denies accompanying headache or h/o migraines, no increased stress/life events. Denies seizure like activity. Mother states maternal grandfather had a CVA in his 60s, patient's cousin has epilepsy. Family is otherwise healthy and patient is healthy herself. Denies any medical complications during or childhood. Patient only takes oral contraceptive medication and no other medicines. No recent hospitalizations. In the ED, labs were relatively unremarkable. Head CT was negative for any acute abnormalities. Brain MRI without contrast showed a 2 cm focus of signal abnormality within the right superior cerebellar peduncle. Negative for hemorrhage or ischemia. Anatomy is otherwise unremarkable. Patient is afebrile, mildly tachycardic. TSH is normal. Urinalysis unremarkable. Urine tox negative, no alcohol. Chest x-ray unremarkable. Neurology was consulted, patient was administered 324 mg p.o. aspirin. Gerstmann Syndrome -4 days, ongoing, persistent -- Aphasia versus dysarthria, dysgraphia? -Brain MRI without contrast with 2 cm focus of signal abnormality in the right superior cerebellar peduncle -differential inc TIA/ demyelination /inflammatory. Infarction/encephalitis seem unlikely given clinical picture. Toxic causes unlikely. -pt is hemodynamically stable, and neuro exam is relatively benign, speaking in full sentences. Plan: -admit med/tele -Consult neurology, defer further imaging to their management. FEN/GI: regular diet DVT ppx: low risk, SCDs CODE STATUS: FULL DISPO: med/tele other ongoing medical problems: -on OCP - continued. Results & Data Vital Signs (Past 12 Hours) Vital Signs Temp Pulse Pulse Resp BP BP Pulse Ox 12/13/18 08:05 36.9 C 85 16 118/80 99 12/13/18 04:00 36.8 C 84 20 106/66 99 12/12/18 23:36 36.8 C 85 16 122/88 98 12/12/18 23:23 95 H 12/12/18 22:30 93 H 21 126/83 97 12/12/18 22:01 101 H 20 98 12/12/18 22:00 101 H 16 112/80 98 12/12/18 21:31 109 H 20 99 12/12/18 21:30 107 H 21 138/95 99 12/12/18 21:00 90 22 116/73 98 12/12/18 20:30 94 H 16 125/79 99 12/12/18 20:12 83 24 129/79 99 PG Care Time/CCT Total # of Minutes Spent Total Time Spent with Patient: Total time spent is greater than 50% in coordination of care (as documented) at patient's floor/unit and/or counseling patient:
[2018-12-13] MEDS ORDERED: SPRINTEC CONTRACEPTIVE PO SCH (09:00)
[2018-12-13] MEDS: POTASSIUM CHLORIDE 20 MEQ TABCR PO SCH ×2 (09:55→11:51)
--- NOTE | 2018-12-13 10:11 | Neurology Consultation ---
Date of Consultation December 13, 2018 Assessment & Plan (1) Abnormal coordination: (2) Ataxic dysarthria: (3) Abnormal brain MRI: This patient has a subacute course of progressive coordination issues with her right hand (clumsiness, not weakness) and motor speech (ataxic dysarthria). The etiology of this is likely the lesion in her right cerebellar peduncle (which would give ipsilateral limb issues. Interestingly, she does not have gait or leg problems. The etiology of the abnormality seen on the brain MRI is probably inflammatory. I cannot exclude her 1st lesion consistent with multiple sclerosis or this could be a another, nonspecific inflammatory lesion (viral, nonspecific immunologic, sarcoidosis) which could channel turner to be mono sclerosis. I cannot entirely exclude Lyme disease. In addition, although the time course is not consistent I cannot exclude an the acute/subacute vascular lesion (stroke). The lesion does not have characteristics of a tumor but a very slow growing glioma is possible. There is no mass effect noted. Otherwise neurologically she has no other focal findings, meningeal signs, or encephalopathy. She has no other signs of inflammation with no joint issues, rash, fatigue, or other general symptoms. She has no significant risk factors by past history either. She is on a control pill which could put her at risk for stroke. Recommendations: 1. Lumbar puncture to evaluate for inflammatory/infectious issues. Check for Lyme disease, viral and other inflammatory possibilities, and MS (MS profile 1). 2. CT angiography of the head neck. 3. Laboratory studies to include ESR, [place] profile 12, SPRING, B12 4. Cut down on alcohol usage (which is fairly high). 5. Consideration to discontinue control pill has been discussed but if this is not a vascular lesions then the control pill does not play a role in the etiology of the lesion. 6. Consider Medrol Dosepak after the lumbar puncture to see if this improve symptoms. 7. I will follow in clinic in the next 2 weeks. 8. Consider repeat MRI with without contrast in 4-6 weeks. Overall, I spent a total of 140 minutes with this patient, including review of records, review of MRI films with Dr. Moore, direct evaluation the patient at bedside, and discussion of the case with the patient and her parents at bedside, nursing staff, and José Miguel Chan and Leonor, including differential diagnosis and treatment options. History of Present Illness Reason for Consultation: Patient is a 18-year-old, who I was asked to see at the request of Dr. Tracey Brewer, for neurologic consultation regarding abnormal speech and right hand function as well as an abnormal MRI of the brain. Requesting Physician: Dr. Tracey Brewer Attending Physician: Rl Galvez DO History of Present Illness She is a [employer], nursing school major. This patient has no significant history of medical problems including migraine headaches, hypertension, diabetes, heart disease, or other. She had 2 minor concussions (without loss of consciousness or memory issues) in high school playing lacrosse and has had no history of seizures or significant central nervous system infections. On December 02, she said back in a chair and hit the back of her head on a counter but did not have loss of consciousness or significant symptoms otherwise. When she woke up on the morning of December 04, she felt as if her speech was somewhat slurred and slow. She knew what she wanted to say but had trouble getting words out. Because she had had some alcohol the night before she thought she was hung over but as the day went on into that week her symptoms not only continued but got somewhat worse. On December 06 she noted that her handwriting was off. She could hold her pain adequately but the handwriting was sloppy were shaky. She did not have any issues with her right face, right leg, or the left side. Over that week she became worse. She denied vision problems or balance issues. She was not incontinent of urine and had no numbness or tingling in any limb. She just felt that she was getting progressively more clumsy in the right hand and in her ability to speak correctly. She arrived at the emergency room on December 12 at 1532 with a temperature of 37.5, pulse 101, blood pressure 150/94, and O2 saturation 100 percent. Examination in the emergency room showed some slight speech hesitancy, right hand weakness and left nystagmus. CBC and Chem profile were unremarkable. TSH was 1.2, urinalysis and tox screen were unremarkable as well. Chest x-ray was unremarkable. CT scan of the head was unremarkable. MRI of the brain showed a 2 centimeter right superior cerebellar peduncle abnormality on FLAIR imaging. Diffuse in imaging showed a little bit of hyperintensity suggesting a acute/subacute course. There was no mass effect and contrast was not given. There were no other white matter abnormalities. I reviewed these films with Dr. Moore, Radiology. This morning the patient's blood pressure is 118/80. She is in no pain or headache and has no new symptoms compared to yesterday. She still has clumsiness in the right hand and some speech hesitancy. She denies double vision. Allergies Allergy/AdvReac Type Severity Reaction Status Date / Time Penicillins Allergy Unknown Verified 12/12/18 17:47 Home Medications Home Medications Medication Instructions Recorded Confirmed Type norgestimate-ethinyl estradiol 1 tab PO DAILY 12/12/18 12/12/18 History [Sprintec (28)] Patient History Medical History No significant past medical history Surgical History S/P wisdom tooth extraction Family History Mother Melanoma Father Dyslipidemia Nephrolithiasis Social History Preferred Language: Romansh Communication Ability: Effective Manager Inventory Control Required: No Beliefs That Will Affect Care: None Current Living Situation: Other Current Living Situation Comment: roommates current occupational status: student Feels Safe at Home: Yes Safety Concerns: Feels Safe At This Time Smoking Status: Never smoker Hx Alcohol Use: Yes Alcohol type: beer, wine and hard liquor Alcohol Intake Frequency Comment: About 10 drinks per week Hx Substance Use: No Review of Systems Constitutional: no fever, no fatigue and no weakness Eyes: no diplopia, no eye pain and no worsening vision Ear, Nose, Mouth, Throat: no ear pain, no tinnitus, no hearing loss, no dizziness, no snoring, no hoarseness and no dysphagia Respiratory: no cough and no dyspnea Cardiovascular: no chest pain, no palpitations and no lightheadedness Gastrointestinal: no abdominal pain, no nausea and no vomiting Genitourinary: no dysuria, no urinary frequency and no urinary incontinence Musculoskeletal: no back pain, no neck pain, no radicular pain, no joint pain and no myalgia Integumentary: no rash and no lesions Neurologic: + lack of coordination (Right hand) and + abnormal speech; no gait abnormality, no localized weakness, no generalized weakness, no tingling, no numbness, no tremor(s), no abnormal movements, no headache(s), no confusion and no memory loss Psychiatric: no depression, no irritability, no anxiety, no difficulty concentrating, no confusion and no hallucinations Endocrine: no fatigue and no flushing Hematologic / Lymphatic: no easy bleeding and no easy bruising Allergy / Immunological: no urticaria and no problem reported Physical Exam Physical Exam: The patient is right-handed. The patient is awake, alert, and attentive. Speech is without any specific receptive or expressive aphasia or obvious dysarthria. She may have slight slurring of the speech at times but this is not consistent. What she has is hesitancy and dysrhythmia of her speech. She can name objects, repeat phrases, and has normal spontaneous speech. Mentation and thought processes are intact, with orientation to person, place and time, and normal fund of knowledge. Attention and concentration are normal. Mood and affect are normal and appropriate. General appearance and grooming are normal. Short and long-term memory are intact. The discs are sharp with positive venous pulsations bilaterally. There are no exudates, hemorrhages, or blood vessel changes seen. Pupils are 4 mm bilaterally and reactive to light. Extraocular eye muscles are intact without nystagmus. Visual acuity and visual pérez seem normal grossly to confrontation. There are no deficits to sensation in the face in all 3 distributions of the fifth cranial nerve bilaterally. Corneal reflexes are positive bilaterally. Facial strength and symmetry was normal bilaterally. Hearing seems normal to whisper and finger rub bilaterally. Palate moves well without asymmetry. There i s normal sternocleidomastoid and trapezius (shoulder shrug) strength bilaterally. Tongue is midline with good strength bilaterally. Neck has a full range of motion without discomfort. There are no cervical bruits bilaterally. There are no cranial or ocular bruits. Heart is without murmur. There is a regular rhythm and rate. Cervical, thoracic, and lumbar spine are nontender to palpation. Gait is narrow based, with good arm swing, turns, and stance. Balance is normal eyes open or closed. The patient can tandem walk without difficulty. The patient can heal and toe walk normally. With outstretched arms there is no drift, but the right upper extremity does wave her some eyes open or closed as she tries to maintain it in space (not the left). There are no resting, postural, or action tremors. There is no ataxia with finger to nose testing. There is good facility in the left hand but decreased facility and rapid alternating movements in the right hand. No other abnormal involuntary movements are noted. Motor strength is 5/5 diffusely in the arms bilaterally including deltoids, biceps, triceps, brachioradialis, wrist flexors and extensors, storage facility housekeeper, and intrinsic hand muscles. Motor strength is 5/5 diffusely in the legs bilaterally including hip flexors, quadriceps, hamstrings, gastrocnemius, tibialis anterior, tibialis posterior, and Peroneii muscles. Toe extensors are normal and there is good bulk in the extensor digitorum brevis muscles bilaterally. The limbs have good tone without rigidity or spasticity. There is no atrophy noted in the muscles. Muscle bulk is normal, there is no tenderness to palpation, no myotonia to percussion, and no fasciculations seen. Sensory examination is intact to touch and pin throughout all 4 limbs diffusely. Reflexes are 2/4 in the biceps, triceps, brachioradialis, quadriceps, and Achilles tendons bilaterally. There is no clonus bilaterally. Toes are downgoing with plantar stimulation bilaterally. Peripheral pulses are present and of normal quality distally in all 4 limbs. There is no peripheral edema noted in the limbs. Results & Data Vital Signs (Past 12 Hours) Vital Signs Temp Pulse Pulse Resp BP BP Pulse Ox 12/13/18 08:05 36.9 C 85 16 118/80 99 12/13/18 04:00 36.8 C 84 20 106/66 99 12/12/18 23:36 36.8 C 85 16 122/88 98 12/12/18 23:23 95 H 12/12/18 22:30 93 H 21 126/83 97 Diagnostic Findings MRI OF THE BRAIN WITHOUT IV CONTRAST CLINICAL HISTORY: Slurred speech. COMPARISON STUDY: CT of the brain dated 12/12/2018. TECHNIQUE: MRI of the brain was performed utilizing various T1 and T2-weighted sequences in the axial, sagittal, and coronal planes. IV contrast was not administered for this examination. FINDINGS: Brain parenchyma: There is a 2 cm focus of geographic signal abnormality within the right superior cerebellar peduncle, best seen on coronal FLAIR image #18. There is no restricted diffusion within this lesion, which causes minimal mass effect. There is no hemorrhage. There is no restricted diffusion typical for acute ischemia. No extra-axial fluid collection is seen. The cerebellar tonsils are normal in configuration. Ventricles, sulci, and cisterns: Normal in configuration. Pituitary and sella: Unremarkable. Intracranial vasculature: Normal flow voids are maintained at the skull base. Orbits: The bony orbits are grossly intact. Orbital contents are normal in appearance. Sinuses and mastoids: Trace mucosal thickening is noted in the right maxillary antrum. The remaining paranasal sinuses are clear. The mastoid air cells are well pneumatized. Calvarium: Unremarkable. Cervical cord: Partially visualized cervical spinal cord is normal in morphology and signal intensity. IMPRESSION: 1. There is a 2 cm region of signal abnormality identified within the right superior cerebellar peduncle which causes mild mass effect. The imaging findings are nonspecific, and this could represent demyelination/multiple sclerosis, glioma, a nonspecific encephalitis, or less likely a subacute infarct. Follow-up with neurology is recommended, as is a repeat contrast-enhanced MRI in several weeks' time. 2. The brain parenchyma is otherwise normal in appearance. There is no hemorrhage or restricted diffusion identified typical for acute ischemia. Findings were discussed with Dr. Cook in the emergency department at the time of interpretation. Electronically signed by: Rajesh Diamond M.D. 12/12/2018 8:47 PM PG Care Time/CCT Total # of Minutes Spent Total Time Spent with Patient: Total time spent is greater than 50% in coordination of care (as documented) at patient's floor/unit and/or counseling patient:
[2018-12-13] MEDS ORDERED: OPTIRAY 320 125ml IV PRN (13:19)
--- NOTE | 2018-12-13 13:39 | CT Scan Report ---
CT angio head wo/w CT DOSE: CLINICAL HISTORY: aphasia, right hand motor issues TECHNIQUE: Noncontrast images are obtained through the brain. CT angiography was then performed in a dynamic helical fashion during intravenous administration of 1 18 cc of Optiray 320. MIP images were acquired. A dose lowering technique was utilized adhering to the principles of ALARA. COMPARISON STUDY: Noncontrast head CT dated 12/12/2018 FINDINGS: Noncontrast images reveal no intra or extra-axial mass lesions are visualized. There is no CT evidenc e of acute cortical infarction. There is no midline shift. There is no evidence of acute hemorrhage. Postcontrast images reveal no pathologically enhancing lesions. CT angiographic images reveal no major intracranial branch occlusions. There are no lesion suspicious for aneurysm. The dural venous sinuses appear patent. IMPRESSION: Unremarkable CT angiography of the brain. Electronically signed by: Jose G Kapadia M.D. 12/13/2018 1:38 PM
--- NOTE | 2018-12-13 13:42 | CT Scan Report ---
CT angio neck with con CLINICAL HISTORY: 18 years-old Female with aphasia, right hand motor issues IV ONLY PER ARG. Apha bia with right and weakness COMPARISON STUDY: CTA of the head of same day TECHNIQUE: Following the IV administration of 118 mL of Optiray 320, CT angiogram of the neck was per formed from the aortic arch to the skull base. Images are reviewed in the axial, sagittal, and vinson l planes. 3-D MIPS images are created and assessed. IV contrast was administered without complication . All measurements were calculated based on NASCET criteria. A dose lowering technique was utilized adhering to the principles of ALARA. CT DOSE: 997.73 mGy.cm FINDINGS: Three-vessel morphology of aortic arch. Patency of the imaged bilateral subclavian arteries. The bila teral common and internal carotid arteries are widely patent and unremarkable. Dominant right vertebr al artery. Patent bilateral vertebral arteries. The basilar artery is patent and unremarkable. There is patency of the imaged posterior cerebral arteries. No aneurysm, dissection, high-grade stenosis or proximal branch occlusion. Lung apices appear to be clear. There is no pneumothorax. Suggestion of residual thymic tissue of the anterior mediastinum. Unremarkable thyroid. No adenopathy. The soft tissues of the neck appear unrem arkable. The orbits are within normal limits. The bones appear to be intact. Mild mucosal thickening of the nasal terminates and right maxillary sinus with left-sided hanna bullosa. IMPRESSION:Unremarkable CTA of the neck. The above report was generated using voice recognition software. It may contain grammatical, syntax o r spelling errors. Electronically signed by: Josue Moore M.D. 12/13/2018 1:41 PM
[2018-12-13] MEDS ORDERED: ACETAMINOPHEN 500 MG TAB PO PRN (14:20)
--- NOTE | 2018-12-13 14:40 | Fluoroscopy Report ---
FL lumbar puncture diagnostic CLINICAL HISTORY: 18 years-old Female with neuro syx. Acute dysarthria with weakness PROCEDURE: The risks, benefits, and alternatives to the procedure is discussed with the patient who v oiced understanding. Written informed consent was obtained. The patient was placed prone on the fluor oscopy table. The lower back was prepped and draped in the usual sterile fashion. 1% lidocaine was us ed for local anesthesia. A 20-gauge spinal needle was inserted into the L2-L3 interlaminar space, and approximately 10 cc of clear colorless cerebrospinal fluid was removed. The patient tolerated the pr ocedure well. There were no immediate complications. The patient was then transported to the medical treatment unit for further observation. Fluoroscopy time: 0.5 minutes. One spot fluoroscopic image was submitted for review. IMPRESSION: Fluoroscopic guided lumbar puncture with removal of approximately 10 cc of cerebrospinal fluid. There were no immediate complications. The above report was generated using voice recognition software. It may contain grammatical, syntax o r spelling errors. Electronically signed by: Josue Moore M.D. 12/13/2018 2:38 PM
[2018-12-13 14:52] LABS: Total Protein CSF 32.7 mg/dl (15-45)
[2018-12-13 14:59] LABS: Lactate CSF 1.7 mmol/L (0.6-2.2)
[2018-12-13 15:33] LABS: C Reactive Protein 1.25 mg/dl (0-0.29)
[2018-12-13 15:59] LABS: Appearance CSF Clear; CSF Count Tube # 3; CSF Xanthrochromic No xanthochromia; Color CSF Colorless
[2018-12-13 16:00] LABS: Red Blood Cell CSF (A) 0 /uL (0-); White Blood Cell CSF (A) 2 /uL (0-5)
--- NOTE | 2018-12-13 17:33 | Discharge Summary ---
Date of Service December 13, 2018 Admission HPI Per Admitting Provider This is a 18-year-old female who presents with her mother and boyfriend after 1 week of difficulty finding words, and also difficulty with handwriting. She states she first noticed symptoms with her handwriting, notes she had tooth "think very hard about what to write". She is a jef in nursing school. Of note she denies any recent head trauma, although has had 2 concussions during high school lacrosse. She states she bumped her head on a [employer] countertop last Wednesday. Her symptoms began Wednesday. Mother states maternal grandfather had a CVA in his 60s, patient's cousin has epilepsy. Family is otherwise healthy and patient is healthy herself. Denies any medical complications during or childhood. Patient only takes oral contraceptive medication and no other medicines. No recent hospitalizations. In the ED, labs were relatively unremarkable. Head CT was negative for any acute abnormalities. Brain MRI without contrast showed a 2 cm focus of signal abnormality within the right superior cerebellar peduncle. Negative for hemorrhage or ischemia. Anatomy is otherwise unremarkable. Patient is afebrile, mildly tachycardic. TSH is normal. Urinalysis unremarkable. Urine tox negative, no alcohol. Chest x-ray unremarkable. Neurology was consulted, patient was administered 324 mg p.o. aspirin. Admission Exam Per Admitting Provider Vitals noted and within normal limits with the exception of mild tachycardia. GENERAL: Awake, alert to person, place, and time, nontoxic-appearing, in no distress. HENT: Normocephalic, atraumatic. Mucus membranes appear moist. EYES: Normal conjunctiva. Sclera non-icteric. EOMI. NECK: Supple. Full range of motion. No JVD. RESPIRATORY: Clear to auscultation. Normal work of breathing. CARDIAC: Regular rate, normal rhythm. Extremities warm and well perfused, 2+ radial pulses bilaterally; 2+ posterior tibialis pulses bilaterally. ABDOMEN: Soft, non-distended. No tenderness to palpation in all four quadrants. No rebound or guarding. No masses. Bowel sounds are normal. LOWER EXTREMITIES: Inspection of calves reveal equal size bilaterally. They are non-tender. No edema. No discoloration. NEURO: No focal motor deficits noted. Sensation in tact. CN II-XII in tact. Normal cerebellar testing. Normal gait, no facial droop. SKIN: Rash not present. No jaundice noted. Significant lesions not present. PSYCH: Appropriate mood and affect. Cooperative. Principal Diagnosis (1) Abnormal coordination: (2) Ataxic dysarthria: (3) Abnormal brain MRI: Discharge Exam The patient is right-handed. The patient is awake, alert, and attentive. Speech is without any specific receptive or expressive aphasia or obvious dysarthria. She may have slight slurring of the speech at times but this is not consistent. What she has is hesitancy and dysrhythmia of her speech. She can name objects, repeat phrases, and has normal spontaneous speech. Mentation and thought processes are intact, with orientation to person, place and time, and normal fund of knowledge. Attention and concentration are normal. Mood and affect are normal and appropriate. General appearance and grooming are normal. Short and long-term memory are intact. The discs are sharp with positive venous pulsations bilaterally. There are no exudates, hemorrhages, or blood vessel changes seen. Pupils are 4 mm bilaterally and reactive to light. Extraocular eye muscles are intact without nystagmus. Visual acuity and visual pérez seem normal grossly to confrontation. There are no deficits to sensation in the face in all 3 distributions of the fifth cranial nerve bilaterally. Corneal reflexes are positive bilaterally. Facial strength and symmetry was normal bilaterally. Hearing seems normal to whisper and finger rub bilaterally. Palate moves well without asymmetry. There is normal sternocleidomastoid and trapezius (shoulder shrug) strength bilaterally. Tongue is midline with good strength bilaterally. Neck has a full range of motion without discomfort. There are no cervical bruits bilaterally. There are no cranial or ocular bruits. Heart is without murmur. There is a regular rhythm and rate. Cervical, thoracic, and lumbar spine are nontender to palpation. Gait is narrow based, with good arm swing, turns, and stance. Balance is normal eyes open or closed. The patient can tandem walk without difficulty. The patient can heal and toe walk normally. With outstretched arms there is no drift, but the right upper extremity does wave her some eyes open or closed as she tries to maintain it in space (not the left). There are no resting, postural, or action tremors. There is no ataxia with finger to nose testing. There is good facility in the left hand but decreased facility and rapid alternating movements in the right hand. No other abnormal involuntary movements are noted. Motor strength is 5/5 diffusely in the arms bilaterally including deltoids, biceps, triceps, brachioradialis, wrist flexors and extensors, waiter/waitress cocktail lounge, and intrinsic hand muscles. Motor strength is 5/5 diffusely in the legs bilaterally including hip flexors, quadriceps, hamstrings, gastrocnemius, tibialis anterior, tibialis posterior, and Peroneii muscles. Toe extensors are normal and there is good bulk in the extensor digitorum brevis muscles bilaterally. The limbs have good tone without rigidity or spasticity. There is no atrophy noted in the muscles. Muscle bulk is normal, there is no tenderness to palpati on, no myotonia to percussion, and no fasciculations seen. Sensory examination is intact to touch and pin throughout all 4 limbs diffusely. Reflexes are 2/4 in the biceps, triceps, brachioradialis, quadriceps, and Achilles tendons bilaterally. There is no clonus bilaterally. Toes are downgoing with plantar stimulation bilaterally. Peripheral pulses are present and of normal quality distally in all 4 limbs. There is no peripheral edema noted in the limbs. Discharge Data Allergies Allergy/AdvReac Type Severity Reaction Status Date / Time Penicillins Allergy Unknown Verified 12/12/18 17:47 Consultations 12/12/18 20:55 ED Decision to Admit Stat 12/12/18 23:23 Consult Neurology Routine This patient has a subacute course of progressive coordination issues with her right hand (clumsiness, not weakness) and motor speech (ataxic dysarthria). The etiology of this is likely the lesion in her right cerebellar peduncle (which would give ipsilateral limb issues. Interestingly, she does not have gait or leg problems. The etiology of the abnormality seen on the brain MRI is probably inflammatory. I cannot exclude her 1st lesion consistent with multiple sclerosis or this could be a another, nonspecific inflammatory lesion (viral, nonspecific immunologic, sarcoidosis) which could turning machine operator to be mono sclerosis. I cannot entirely exclude Lyme disease. In addition, although the time course is not consistent I cannot exclude an the acute/subacute vascular lesion (stroke). The lesion does not have characteristics of a tumor but a very slow growing glioma is possible. There is no mass effect noted. Otherwise neurologically she has no other focal findings, meningeal signs, or encephalopathy. She has no other signs of inflammation with no joint issues, rash, fatigue, or other general symptoms. She has no significant risk factors by past history either. She is on a control pill which could put her at risk for stroke. Recommendations: 1. Lumbar puncture to evaluate for inflammatory/infectious issues. Check for Lyme disease, viral and other inflammatory possibilities, and MS (MS profile 1). 2. CT angiography of the head neck. 3. Laboratory studies to include ESR, HOUSTON profile 12, SPRING, B12 4. Cut down on alcohol usage (which is fairly high). 5. Consideration to discontinue control pill has been discussed but if this is not a vascular lesions then the control pill does not play a role in the etiology of the lesion. 6. Consider Medrol Dosepak after the lumbar puncture to see if this improve symptoms. 7. I will follow in clinic in the next 2 weeks. 8. Consider repeat MRI with without contrast in 4-[address] of the head without IV contrast on 12 December 2018 IMPRESSION: No acute intracranial abnormality. Single view chest x-ray on 12 December 2018 IMPRESSION: No active disease in the chest. MRI of the brain without IV contrast on 12 December 2018 IMPRESSION: 1. There is a 2 cm region of signal abnormality identified within the right superior cerebellar peduncle which causes mild mass effect. The imaging findings are nonspecific, and this could represent demyelination/multiple sclerosis, glioma, a nonspecific encephalitis, or less likely a subacute infarct. Follow-up with neurology is recommended, as is a repeat contrast-enhanced MRI in several weeks' time. 2. The brain parenchyma is otherwise normal in appearance. There is no hemorrhage or restricted diffusion identified typical for acute ischemia. CT angio of the neck on 13 December 2018 IMPRESSION: Unremarkable CTA of the neck. CT Angio of the head with and without contrast on 13 December 2018 IMPRESSION: Unremarkable CT angiography of the brain. Fluoroscopic lumbar puncture performed on 13 December 2018 IMPRESSION: Fluoroscopic guided lumbar puncture with removal of approximately 10 cc of cerebrospinal fluid. There were no immediate complications. Hospital Course (1) Abnormal coordination: 18-year-old female was admitted on 12 December 2018 for difficulty finding words or slurred speech and with handwriting. Abnormal coordination, ataxic dysarthria, abnormal brain MRI: One week of progressive right hand coordination issues as well as ataxic dysarthria. - Initial ED work-up of chest x-ray and EKG were unremarkable. CT of the head was non-acute. Was treated with aspirin on admission. - Please see full read of MRI of the brain, specifically the 2 cm area in the cerebellar peduncle. -Neurology was consulted. Please see their full note. An inflammatory process seems most likely though the exact diagnosis is unclear. - Follow on CTA of the head and neck were unremarkable. Her lumbar puncture did not show any acute evidence of meningitis or infectious process. ESR was normal range. CRP was elevated to 1.25. Vitamin B12 was normal. - Multiple lab tests to include blood work (SPRING level) and lumbar puncture (Lyme, CMV, enterovirus, herpes virus, IgG, albumin, and HOUSTON screening) are pending at time of discharge. - Recommended to repeat MRI with and without contrast in the next 4 to 6 weeks. Prior to this, she is recommended to follow-up with neurology in [address] Garcia. Hypokalemia: Admit K 3.4. Consider recheck as outpatient. . Ongoing medical issues: - History of concussions playing lacrosse. - OCP use: Has been on Sprintec at home. See neurology recommendation on potentially stopping this. Code status: Full code. (2) Ataxic dysarthria: (3) Abnormal brain MRI: Discharge Plan Discharge Items Patient Disposition: Home - Self-Care Reason For Visit: NEURO SYMPTOMS Discharge Diagnosis: Abnormal coordination, ataxic dysarthria, abnormal brain MRI Activity: Per Instructions section Non-emergency contact: Primary Care Provider and Neurologist Call non-emergency contact if: you have any medication questions Follow-up/Referrals: [facility] [Primary Care Provider] - Diet: Regular Addtl Attending Provider Instructions: You were admitted to the hospital on December 12, 2018 regarding your difficulties with speech and with hand movement. While here, you were evaluated by the neurology service (Dr. Garcia). As you know, multiple tests were performed. Thus far the only notable results from all of your imaging was an area within the cerebellum. It is presently unclear exactly what this is or if it is the cause of your symptoms. Multiple blood and spinal fluid tests were also performed. Thus far none of them show an obvious source of your symptoms, though multiple tests are still pending. - You are being prescribed a medicine called a Medrol Dosepak. This is a course of steroids that, if your symptoms are caused by inflammation, may improve and/or resolve your symptoms. - For now, it is recommended that you follow-up with neurology (Dr. Garcia with [facility]) in about 2 weeks for further evaluation. Please contact his office for an appointment. - In the interim, ideally you should try to return back to normal activities as best as possible. - If possible, you should also try to contact your primary care provider so that they can stay informed of your hospital care. - As we discussed in person, though it is not guaranteed, you are at risk for something called a post lumbar puncture headache. If you believe that this headache is mild you can try treating it with some Tylenol and/or caffeine. If in any way you think this headache is severe or worrisome, you are encouraged to return to the emergency department for further evaluation and possible specialized treatments. - In general, if you find that your neuro symptoms are worsening, you develop a fever, difficulty swallowing or breathing, or with any other emergent symptoms please return back to the emergency department for further evaluation. Pending Studies at Discharge: Yes Studies:: Multiple blood and CSF studies. Stand-Alone Forms: My [facility] Medications and DC Order Prescriptions: New methylprednisolone 4 mg tablet See Rx Instructions .ROUTE .COMPLEX Qty: 21 RF: 0 Continued norgestimate-ethinyl estradiol [Sprintec (28)] 0.25-35 mg-mcg tablet 1 tab PO DAILY RF: 0 Discharge Orders: Discharge Order (Routine); Ordered 12/13/18 Ordered By: Montana Moore Admission Data Admit Date/Time: 12/13/18 11:51 Attending Provider: Rl Galvez Admit Provider: Tracey Brewer Primary Care Provider: [facility] Other Providers: David Guo ; Gustabo Garcia III Other Interventions: Discharge Summary Assessment (RN) Last Done: 12/13/18 17:39 DC Date/Time DO NOT enter until pt leaves facility: 12/13/18 18:30 Supervising Physician Co-Signing Physician Notes Patient seen and examined with PGY-2 Dr. Chan and PGY-3 Dr. Estevez. Agree with hospital course, exam findings, assessment and plan of care. 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 2cm abnormality in the right superior cerebellar peducle. Negative utox. CTA head/neck within normal. LP done today--fluid sent including Lyme, viral panel, MS-1 panel. ESR nl. CRP mildly elevated. SPRING level pending. Discussed case with neurologist, Dr. Garcia. Ok to dc home with medrol dose pack. Follow up with Dr. Garcia. I personally spent 36 minute discharge planning for this patient. Resident Activity Tracking Resident Involvement: Resident Care Provided Care Provided: Adult Hospital Medicine
[2018-12-16 10:41] LABS: Angiotensin Converting Enzyme 24 U/L (9-67); Anti Nuclear Antibody Screen POSITIVE (NEGATIVE)
[2018-12-16 12:03] LABS: CMV DNA Qnt Real Time PCR <200 IU/mL (<200); CMV DNA Quant PCR <2.30 log IU/mL (<2.30)
[2018-12-24 08:55] LABS: Albumin 3.9 g/dL (3.5-5.2); Albumin, CSF 16.1 mg/dL (8.0-42.0); Enterovirus RNA by PCR Not Detected (Not Detected); HSV Type 1 DNA Not Detected (Not Detected); HSV Type 1&2 DNA Source CSF; HSV Type 2 DNA Not Detected (Not Detected); IgG CSF 2.3 mg/dL (0.8-7.7); IgG Index, CSF 0.53 (<0.66); IgG Serum 1060 mg/dL (600-1640); Lyme DNA PCR CSF or Synovial Not detected (Not Detected); Lyme DNA Source CSF; Lyme IgG CSF NO BANDS DETECTED; Lyme IgM CSF NO BANDS DETECTED; Myelin Basic Protein 3.9 mcg/L (2.0-4.0); Synthesis Rate, IgG CSF -2.4 mg/24 h (-9.9-3.3); VDRL Qualitative CSF Nonreactive (Nonreactive)
== END 2018-12-13 18:30 | disposition home or self-care (01) | DRG 93 ==
LOC: ED 15:19 → 2W 15:19 → SUATTDRO 22:30 → 2W 22:59
DX: Z88.0 Allergy status to penicillin; R94.02 Abnormal brain scan; R27.9 Unspecified lack of coordination; R27.0 Ataxia, unspecified